=== PATIENT | male | born 1995 | race Two or more races ===

== ENCOUNTER 2022-11-28 13:05 | Emergency (ER) | payer OTHER, SELFPAY ==
[2022-11-28 13:50] VITALS: BP 109/73; PULSE 76; RESP 18; TEMP 36.7; O2SAT 98; BMI 30.4
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
== END 2022-11-28 14:09 | disposition home or self-care (01) ==
LOC: HO.ED 14:08
PROVIDERS: Emergency Provider Emergency Medicine
DX: S39.012A Strain of muscle, fascia and tendon of lower back, initial encounter (principal); S13.4XXA Sprain of ligaments of cervical spine, initial encounter; R51.9 Headache, unspecified; V43.52XA Car driver injured in collision with other type car in traffic accident, initial encounter; Y93.9 Activity, unspecified; Y92.410 Unspecified street and highway as the place of occurrence of the external cause; Y99.9 Unspecified external cause status; Z79.899 Other long term (current) drug therapy
CPT/HCPCS: 99282; 99283